=== PATIENT | male | born 1945 | race Caucasian/White ===

== ENCOUNTER 2020-12-15 08:01 | Day surgery (SDC) | payer MEDICARE, OTHER ==
--- NOTE | 2020-12-11 10:25 | PCM.SN.2 ---
- Free Text/Narrative Note: Left selective femoral nerve block at the adductor canal for post-procedure pain control under US guidance requested by Dr. Brown. Date: 12/15/2020 Time Out: 1151 Start: 1151 End: 1158 Chart reviewed. Consent signed. Questions answered. Appropriate monitors applied. Time out performed. Left mid-shaft femur identified with ultrasound, scanning medially of femur, the femoral artery in the adductor canal visualized, and the femoral nerve located laterally to the artery. The skin was prepped lateral to the ultrasound probe with chlorahexadine times two. The 21ga 4 insulated block needle was inserted under direct ultrasound guidance into the adductor canal. 25mL of 0.5% ropivacaine with 1:200,000 epinephrine was injected circumferentially around the nerve with intermittent negative aspiration noted. Patient tolerated the procedure well. Sterile technique noted along with sterile gloves, mask, and sterile probe cover. See picture on progress note and vital signs on nurses notes. Block completed in PACU. Micaela Jackson CRNA
[~2020-12-15 08:01] MED LIST: Acetaminophen 325 MG Tab PO SCH; EPINEPHrine 1 MG/ML SDV ONE; Lidocaine 1% 4 ML ONE; Lidocaine 1%/Sod Bicarbonate in NS 8.4% 1 ML Syringe IDERM PRN; Midazolam 1 MG/ML 2 ML SDV ONE; Morphine 8 MG, EPINEPHrine 0.3 MG, Cefuroxime 750 MG, Ketorolac 30 MG, Sodium Chloride ... PRN; Pregabalin 25 MG Cap PO SCH; Propofol 200 MG/20 ML SDV ONE; Ropivacaine 0.5% 5 MG/ML 30 ML SDV ONE; Sodium Chloride 0.9% 10 ML Syringe FLUSH PRN; ceFAZolin 1 GM Vial ONE; oxyCODONE ER 10 MG TAB.ER PO SCH
[2020-12-15] MEDS: Lactated Ringers 1,000 ML IV SCH ×2 (08:25→12:25)
--- NOTE | 2020-12-15 09:06 | PCM.PREANE ---
Preanesthetic Assessment - Procedure Proposed Procedure: Left total knee arthroplaasty - Anesthesia/Transfusion/Family Hx Anesthesia History: No Prior Anesthesia Family History of Anesthesia Reaction: No Transfusion History: No Prior Transfusion(s) Intubation History: Unknown - Review of Systems General: No Symptoms Pulmonary: No Symptoms Cardiovascular: No Symptoms Gastrointestinal: No Symptoms Neurological: No Symptoms Other: Reports: None - Physical Assessment NPO Status Date: 12/15/20 NPO Status Time: 22:30 Vital Signs: Last Vital Signs Temp 36.6 C 12/15/20 08:00 Pulse 65 12/15/20 08:00 Resp 16 12/15/20 08:00 BP 142/85 H 12/15/20 08:00 Pulse Ox 95 12/15/20 08:00 Height: 1.93 m Weight: 100.698 kg ASA Class: 2 Mental Status: Alert & Oriented x3 Thyro-Mental Finger Breadths: 3 Mouth Opening Finger Breadths: 4 ROM/Head Extension: Full Lungs: Clear to Auscultation, Normal Respiratory Effort Cardiovascular: Regular Rate, Regular Rhythm - Lab Values: Laboratory Last Values MRSA (PCR) Negative 12/05/20 14:30 - Allergies Allergies/Adverse Reactions: Allergies Allergy/AdvReac Type Severity Reaction Status Date / Time Penicillins Allergy Severe Rash Verified 12/12/20 11:55 hazelnut Allergy tongue Verified 12/12/20 11:55 tingling - Blood Blood Available: No - Anesthesia Plan Pre-Op Medication Ordered: None - Acknowledgements Anesthesia Type Planned: Spinal Pt an Appropriate Candidate for the Planned Anesthesia: Yes Alternatives and Risks of Anesthesia Discussed w Pt/Guardian: Yes Pt/Guardian Understands and Agrees with Anesthesia Plan: Yes PreAnesthesia Questionnaire HEENT History: Reports: Impaired Vision Cardiovascular History: Reports: High Cholesterol Respiratory History: Reports: None Gastrointestinal History: Reports: Colon Polyp, Gastritis, GERD, Other (See Below) Other Gastrointestinal History: esophagitis Genitourinary History: Reports: None [employer] History: Reports: None Musculoskeletal History: Reports: Osteoarthritis, Other (See Below) Other Musculoskeletal History: chronic knee pain Neurological History: Reports: None Psychiatric History: Reports: None Endocrine/Metabolic History: Reports: None Hematologic History: Reports: Other (See Below) Other Hematologic History: family history of a blood clotting disorder Immunologic History: Reports: None Oncologic (Cancer) History: Reports: None Dermatologic History: Reports: Psoriasis - Infectious Disease History Infectious Disease History: Reports: None - Past Surgical History Head Surgeries/Procedures: Reports: None HEENT Surgical History: Reports: Naso-Sinus Surgery, Tonsillectomy, Other (See Below) Other HEENT Surgeries/Procedures: sinus surgery, nasal polypectomy, septoplasty, turbinate reduction Cardiovascular Surgical History: Reports: None Respiratory Surgical History: Reports: None GI Surgical History: Reports: Colonoscopy, EGD Female Surgical History: Reports: None Male Surgical History: Reports: None Endocrine Surgical History: Reports: None Neurological Surgical History: Reports: None Other Musculoskeletal Surgeries/Procedures:: left knee surgery Oncologic Surgical History: Reports: None Dermatological Surgical History: Reports: None - SUBSTANCE USE Tobacco Use Status *Q: Never Tobacco User Recreational Drug Use History: No - HOME MEDS Home Medications: Home Meds Multivitamin [Multivitamins] 1 tab PO DAILY 06/15/14 [History] Acetaminophen [Tylenol Extra Strength] 1,000 mg PO QAM 12/12/20 [History] Ascorbic Acid/Collagen Hydr [Collagen Plus Vit C] 1 cap PO DAILY 12/12/20 [History] Calcium Carbonate [Calcium] 600 mg PO DAILY 12/12/20 [History] Cholecalciferol (Vitamin D3) [Vitamin D3] 5,000 unit PO DAILY 12/12/20 [History] Glucosam/Chond/Collagen/Hyalur [Glucosamine Chondroitin] 1 tab PO DAILY 12/12/20 [History] Montelukast Sodium [Singulair] 10 mg PO DAILY 12/12/20 [History] Omega3/Dha/Epa/Fish Oil/Vit D3 [Fish Oil-Vit D3 Softgel] 1 cap PO DAILY 12/12/20 [History] Pantoprazole Sodium [Protonix] 20 mg PO DAILY 12/12/20 [History] Pravastatin [Pravachol] 20 mg PO DAILY 12/12/20 [History] Saw [place] 500 mg PO DAILY 12/12/20 [History] Ubidecarenone [Coq-10] 200 mg PO DAILY 12/12/20 [History] Cyclobenzaprine [Flexeril] 10 mg PO BID PRN #20 tab 12/15/20 [Rx] Rivaroxaban [Xarelto] 10 mg PO DAILY #30 tab 12/15/20 [Rx] oxyCODONE 5 - 10 mg PO Q4H PRN #40 tab 12/15/20 [Rx] - CURRENT (IN HOUSE) MEDS Current Meds: Current Medications Acetaminophen (Acetaminophen 325 Mg Tab) 975 mg PO ONETIME TARA Stop: 12/15/20 13:00 Last Admin: 12/15/20 08:05 Dose: 975 mg Documented by: Morphine Sulfate 8 mg/Epinephrine HCl 0.3 mg/Cefuroxime Sodium 750 mg/Ketorolac Tromethamine 30 mg/Sodium Chloride 7.9 ml 0 mg .XX ASDIRECTED PRN PRN Reason: Pain Stop: 12/15/20 13:00 Lactated Ringer's (Ringers, Lactated) 1,000 mls @ 125 mls/hr IV ASDIRECTED TARA Stop: 12/15/20 23:00 Last Admin: 12/15/20 08:25 Dose: 125 mls/hr Documented by: Lidocaine/Sodium Bicarbonate (Lidocaine 1%/Sod Bicarbonate In Ns 8.4% 1 Ml Syringe) 0.25 ml IDERM ONETIME PRN PRN Reason: Prior to IV Start Stop: 12/15/20 18:00 Last Admin: 12/15/20 08:24 Dose: 0.25 ml Documented by: Oxycodone HCl (Oxycodone Er 10 Mg Tab.Er) 10 mg PO ONETIME TARA Stop: 12/15/20 13:00 Last Admin: 12/15/20 08:05 Dose: 10 mg Documented by: Pregabalin (Pregabalin 25 Mg Cap) 50 mg PO ONETIME TARA Stop: 12/15/20 13:00 Last Admin: 12/15/20 08:05 Dose: 50 mg Documented by: Sodium Chloride (Sodium Chloride 0.9% 10 Ml Syringe) 10 ml FLUSH ASDIRECTED PRN PRN Reason: Keep Vein Open Stop: 12/15/20 18:00 Discontinued Medications Bupivacaine HCl (Bupivacaine 0.25% 10 Ml Sdv) Confirm Administered Dose 10 ml .ROUTE .STK-MED ONE Stop: 12/15/20 08:45 Cefazolin Sodium (Cefazolin 1 Gm Vial) Confirm Administered Dose 2 gm .ROUTE .STK-MED ONE Stop: 12/15/20 07:36 Epinephrine HCl (Epinephrine 1 Mg/Ml Sdv) Confirm Administered Dose 1 mg .ROUTE .STK-MED ONE Stop: 12/15/20 07:12 Lidocaine HCl (Xylocaine-Mpf 1%) Confirm Administered Dose 4 mls @ as directed .ROUTE .STK-MED ONE Stop: 12/15/20 07:36 Midazolam HCl (Midazolam 1 Mg/Ml 2 Ml Sdv) Confirm Administered Dose 2 mg .ROUTE .STK-MED ONE Stop: 12/15/20 07:35 Propofol (Propofol 200 Mg/20 Ml Sdv) Confirm Administered Dose 200 mg .ROUTE .STK-MED ONE Stop: 12/15/20 07:35 Ropivacaine (Ropivacaine 0.5% 5 Mg/Ml 30 Ml Sdv) Confirm Administered Dose 30 ml .ROUTE .STK-MED ONE Stop: 12/15/20 07:12 Tranexamic Acid (Tranexamic Acid 1,000 Mg/10 Ml Amp) Confirm Administered Dose 1,000 mg .ROUTE .STK-MED ONE Stop: 12/15/20 08:07 Triamcinolone Acetonide (Triamcinolone Acetonide 40 Mg/Ml 1 Ml Sdv) Confirm Administered Dose 80 mg .ROUTE .STK-MED ONE Stop: 12/15/20 08:45 Vancomycin HCl (Vancomycin 1 Gm Sdv) Confirm Administered Dose 1 gm .ROUTE .STK- MED ONE Stop: 12/15/20 08:07
[2020-12-15] MEDS: Vancomycin 1 GM SDV ONE ×2 (09:22→11:14)
[2020-12-15] MEDS: Bupivacaine 0.25% 10 ML SDV ONE ×2 (09:24→11:30)
[2020-12-15] MEDS: Triamcinolone Acetonide 40 MG/ML 1 ML SDV ONE ×2 (09:25→11:30)
[2020-12-15] MEDS ORDERED: Propofol 200 MG/20 ML SDV ONE (10:21)
[2020-12-15] MEDS ORDERED: Lactated Ringers 1,000 ML ONE (10:43)
[2020-12-15] MEDS ORDERED: diphenhydrAMINE 50 MG/ML SDV IVPUSH PRN (11:53)
[2020-12-15] MEDS ORDERED: Ondansetron 4 MG/2 ML SDV IVPUSH PRN (11:53)
[2020-12-15] MEDS ORDERED: fentaNYL 100 MCG/2 ML SDV IVPUSH PRN (11:53)
--- NOTE | 2020-12-15 11:55 | PCM.POSTAN ---
POST ANESTHESIA ASSESSMENT - MENTAL STATUS Mental Status: Other (drowsy ) - VITAL SIGNS Vital Signs: Last Vital Signs Temp 36.1 C 12/15/20 11:45 Pulse 63 12/15/20 11:45 Resp 14 12/15/20 11:45 BP 100/55 L 12/15/20 11:45 Pulse Ox 97 12/15/20 11:45 - RESPIRATORY Respiratory Status: Respiratory Rate WNL, Airway Patent, O2 Saturation Stable, Supplemental Oxygen - CARDIOVASCULAR CV Status: Pulse Rate WNL, Blood Pressure Stable - GASTROINTESTINAL GI Status: No Symptoms - PAIN Pain Score: 0 - POST OP HYDRATION Hydration Status: Adequate & Stable
[2020-12-15] MEDS ORDERED: oxyCODONE 5 MG Tab PO PRN (12:06)
--- NOTE | 2020-12-15 12:08 | PCM48HPAN ---
Post Anesthesia Note - EVALUATION WITHIN 48HRS OF ANESTHETIC Vital Signs in Normal Range: Yes Patient Participated in Evaluation: Yes Respiratory Function Stable: Yes Airway Patent: Yes Cardiovascular Function Stable: Yes Hydration Status Stable: Yes Pain Control Satisfactory: Yes Nausea and Vomiting Control Satisfactory: Yes Mental Status Recovered: Yes Vital Signs: Last Vital Signs Temp 36.1 C 12/15/20 12:00 Pulse 63 12/15/20 12:00 Resp 12 12/15/20 12:00 BP 105/63 12/15/20 12:00 Pulse Ox 95 12/15/20 12:00
[2020-12-15] MEDS ORDERED: Cyclobenzaprine 10 MG Tab PO ONE (12:15)
--- NOTE | 2020-12-15 12:48 | CR ---
Left knee: AP and lateral views of the left knee were obtained. Comparison: Prior left knee CT study of 12/05/20 is available. Knee prosthesis is seen as well as patellar prosthesis. Components are aligned. Underlying bony structures are intact. No acute fracture or other osseous abnormality is seen. Soft tissue air is noted. Impression: 1. Satisfactory appearance of recently placed left knee prostheses. Diagnostic code #2
[2020-12-15 14:50] VITALS: BP 132/71; PULSE 53
--- NOTE | 2020-12-15 17:54 | PCM.OPNOTE ---
- General Post-Op/Procedure Note Date of Surgery/Procedure: 12/15/20 Operative Procedure(s): left total knee arthroplasty with j[employer] robot[employer] with right knee corticosteroid injection Pre Op Diagnosis: bilateral knee osteoartrhosis Post-Op Diagnosis: Same Anesthesia Technique: Local, MAC, Spinal Primary Surgeon: Carlos Brown Anesthesia Provider: Micaela Jackson Board Design Engineer: Lilian Ghotra Board Design Engineer: Rebeka De EBL in mLs: 200 Complications: None Condition: Good Free Text/Narrative:: Intake & Output 12/15/20 12/15/20 12/15/20 06:59 14:59 22:59 Intake Total 300 Balance 300 7/7 9mm 35x10
--- NOTE | 2020-12-21 19:07 | OR ---
DATE OF OPERATION: 12/15/2020 SURGEON: Carlos Brown MD OPERATION PERFORMED: Left total knee arthroplasty with [employer] robot[employer] with right knee corticosteroid injection. PREOPERATIVE DIAGNOSIS: Bilateral knee osteoarthrosis. POSTOPERATIVE DIAGNOSIS: Bilateral knee osteoarthrosis. ANESTHESIA: Local MAC with spinal. ANESTHESIA PROVIDER: Micaela Jackson CRNA. ASSISTANTS: Lilian Ghotra PA-C and Rebeka De LPN. ESTIMATED BLOOD LOSS: 200 mL. COMPLICATIONS: None. CONDITION: Stable. IMPLANTS: 1. [place] size 7 press-fit CR femur. 2. Radha size 7 press-fit tibial baseplate. 3. Radha size 7, 9 mm CS polyethylene insert. 4. Radha size 35 x 10 mm press-fit asymmetric patella. DESCRIPTION OF PROCEDURE: The patient was identified in the preop holding area. Proper site was marked, identified by the surgeon. The patient was taken back to the operative theater, where after adequate anesthesia, the patient had a nonsterile tourniquet applied to the left lower extremity. He was then sterilely prepped and draped in the usual sterile fashion. OR time-out was performed. The patient received 2 g IV Ancef. The left lower extremity then had the loop choi applied. It was then exsanguinated and tourniquet was insufflated to 250 mmHg. Standard anterior incision was made and medial parapatellar arthrotomy was created. Deep fibers of the MCL were raised and the anterior fat pad was resected. At this time, attention was turned to the patella. Patella measured a 26 and resected to a 15 for a 35 x 10 mm patella. Drill holes were then drilled and found to be adequate, and the patient had good bone quality. Two 4.0 guide pins were then placed intra-incisionally in the femur and then 2 were placed 3 fingerbreadths below the tibial tubercle and tibia for the [place] Gabriel robotic arrays. Checkpoints were then placed in both the femur and the tibia as well. At this time, 40 points were obtained off both the femur and the tibia for the Radha Gabriel robotic plan. The patient's knee was brought into full extension. Varus and valgus stresses were applied as well as at 90 degrees of flexion. Radha Gabriel robotic plan was made for 19 mm gaps in both flexion and extension after adjusting for the patient's anatomy and tensioning of the ligaments. [employer] robotic arm was brought in with the straight saw blade. The tibial cut was then completed as well as the anterior femoral cut, the anterior chamfer cut, and posterior femoral cut. All bony pieces were removed. Saw blade was then switched and the distal femoral cut and posterior chamfer cut was completed. All cuts were found to be adequate. Medial and lateral menisci were then resected. Posterior osteophytes were removed. Trial implants from size 7 tibia and size 7 femur were then placed. A 9 mm trial was placed. The patient had full extension and flexion on the [employer] robotic plan with no varus-valgus instability. At this time, the tibia was stamped and drilled in proper rotation. All trial implants were removed. The guide pins were removed from both the femur and the tibia as well as the checkpoints. Size 7 press-fit tibia was then impacted into place. Size 7 press-fit femur was impacted into place. 9 mm CS polyethylene insert was impacted into place. The patient's knee was brought to full extension, and a 35 x 10 mm patella was press-fit into place. Tourniquet was deflated. Bleeders were cauterized. 1 L pulse lavage irrigation with Ancef was irrigated through the knee along with 400 mL IrriSept irrigation. Periarticular injection was completed. Topical tranexamic acid and vancomycin powder were applied intra-incisionally. A #2 barbed suture was used for closure of the medial parapatellar arthrotomy. 2-0 Vicryl and Stratafix were used for subcutaneous closure, and Prineo was used for skin closure. The patient had sterile soft dressing applied. After this was completed under sterile technique, 2 mL of 40 mg Kenalog and 4 mL of 0.25% Marcaine were injected to the patient's right knee. The patient tolerated all the procedures well and was sent to PACU in stable condition. FORD /[id number]
== END 2020-12-15 15:50 | disposition home or self-care (01) ==
LOC: JD.SDS 08:01
PROVIDERS: ATTEND Orthopaedic Surgery
DX: M17.0 Bilateral primary osteoarthritis of knee (principal); M25.762 Osteophyte, left knee; G89.29 Other chronic pain; E78.00 Pure hypercholesterolemia, unspecified; K21.9 Gastro-esophageal reflux disease without esophagitis; E78.5 Hyperlipidemia, unspecified; Z79.899 Other long term (current) drug therapy; Z88.0 Allergy status to penicillin; Z91.018 Allergy to other foods; Z87.891 Personal history of nicotine dependence; Z86.010 Personal history of colon polyps; Z98.890 Other specified postprocedural states
CPT/HCPCS: 20610; 27447; 73560; 87641; 97110; 97116; 97161; 97165; A9270; C1713; C1776; J0171; J0690; J0697; J1885; J2250; J2270; J2704; J2795; J3301; J3370; J3490; J7120; 01402; 64450; 76942; 99100

== ENCOUNTER 2021-12-21 08:43 | Day surgery (SDC) | payer MEDICARE, OTHER ==
[~2021-12-21 08:43] MED LIST changes: -Acetaminophen 325 MG Tab PO SCH; -EPINEPHrine 1 MG/ML SDV ONE; +Lactated Ringers 1,000 ML IV SCH; -Lidocaine 1% 4 ML ONE; -Midazolam 1 MG/ML 2 ML SDV ONE; -Morphine 8 MG, EPINEPHrine 0.3 MG, Cefuroxime 750 MG, Ketorolac 30 MG, Sodium Chloride ... PRN; -Pregabalin 25 MG Cap PO SCH; -Propofol 200 MG/20 ML SDV ONE; -Ropivacaine 0.5% 5 MG/ML 30 ML SDV ONE; +Sodium Chloride 0.9% 10 ML Syringe FLUSH SCH; -ceFAZolin 1 GM Vial ONE; -oxyCODONE ER 10 MG TAB.ER PO SCH
[2021-12-21] MEDS ORDERED: Acetaminophen 325 MG Tab PO ONE (09:00)
[2021-12-21] MEDS ORDERED: oxyCODONE ER 10 MG TAB.ER PO ONE (09:00)
[2021-12-21] MEDS ORDERED: Pregabalin 25 MG Cap PO ONE (09:00)
[2021-12-21] MEDS ORDERED: Propofol 200 MG/20 ML SDV ONE ×3 (10:54→12:04)
[2021-12-21] MEDS ORDERED: fentaNYL 100 MCG/2 ML SDV ONE (10:54)
[2021-12-21] MEDS ORDERED: Midazolam 1 MG/ML 2 ML SDV ONE (10:54)
[2021-12-21] MEDS ORDERED: Lidocaine 1% 4 ML ONE (10:55)
[2021-12-21] MEDS ORDERED: Dexamethasone 4 MG/ML 5 ML MDV ONE (10:58)
[2021-12-21] MEDS ORDERED: ceFAZolin 1 GM Vial ONE (11:10)
[2021-12-21] MEDS ORDERED: Lactated Ringers 500 ML ONE (11:30)
[2021-12-21] MEDS ORDERED: diphenhydrAMINE 50 MG/ML SDV IVPUSH PRN (11:58)
[2021-12-21] MEDS ORDERED: Ondansetron 4 MG/2 ML SDV IVPUSH PRN (11:58)
[2021-12-21] MEDS ORDERED: fentaNYL 100 MCG/2 ML SDV IVPUSH PRN (11:58)
[2021-12-21] MEDS: Morphine 8 MG, EPINEPHrine 0.3 MG, Cefuroxime 750 MG, Ketorolac 30 MG, Sodium Chloride ... PRN ×10 (12:08→12:22)
[2021-12-21] MEDS: Vancomycin 1 GM SDV ONE ×2 (12:09→12:29)
[2021-12-21] MEDS ORDERED: Ondansetron 4 MG/2 ML SDV ONE (12:11)
[2021-12-21] MEDS ORDERED: Ketorolac 30 MG/ML SDV ONE (12:11)
[2021-12-21] MEDS ORDERED: EPINEPHrine 1 MG/ML SDV ONE (12:55)
[2021-12-21] MEDS ORDERED: Ropivacaine 0.5% 5 MG/ML 30 ML SDV ONE (12:55)
[2021-12-21] MEDS ORDERED: oxyCODONE 5 MG Tab PO ONE (13:00)
[2021-12-21 17:07] VITALS: BP 130/72; PULSE 72
== END 2021-12-21 16:15 | disposition home or self-care (01) ==
LOC: JD.SDS 08:43
PROVIDERS: ATTEND Orthopaedic Surgery
DX: M17.11 Unilateral primary osteoarthritis, right knee (principal); E78.00 Pure hypercholesterolemia, unspecified; K21.9 Gastro-esophageal reflux disease without esophagitis; Z79.899 Other long term (current) drug therapy; Z88.0 Allergy status to penicillin; Z88.8 Allergy status to other drugs, medicaments and biological substances; Z98.890 Other specified postprocedural states; Z87.891 Personal history of nicotine dependence
CPT/HCPCS: 0055T; 27447; 73560; 97110; 97116; 97161; A9270; C1713; C1776; J0171; J0690; J0697; J1100; J1885; J2250; J2270; J2405; J2704; J2795; J3010; J3370; J7120; 01402; 64447; 76942; 99100

== ENCOUNTER 2021-12-23 00:20 | Emergency (ER) | payer MEDICARE, OTHER ==
[2021-12-23 00:37] VITALS: BP 134/120; PULSE 80
[2021-12-23] MEDS ORDERED: Sodium Chloride 0.9% 1,000 ML IV ONE (00:54)
== END 2021-12-23 02:05 | disposition home or self-care (01) ==
LOC: JD.ED 00:20
DX: R42 Dizziness and giddiness (principal); N17.9 Acute kidney failure, unspecified; E78.00 Pure hypercholesterolemia, unspecified; K21.9 Gastro-esophageal reflux disease without esophagitis; Z88.0 Allergy status to penicillin; Z91.018 Allergy to other foods; Z79.01 Long term (current) use of anticoagulants; Z79.899 Other long term (current) drug therapy
CPT/HCPCS: 36415; 80048; 82947; 84484; 85014; 85018; 93005; 99285; J7030

== ENCOUNTER 2021-12-23 09:32 | Inpatient (IN) | payer MEDICARE, OTHER ==
[2021-12-23] MEDS ORDERED: HYDROmorphone 1 MG/ML Syringe IVPUSH ONE (11:01)
[2021-12-23] MEDS ORDERED: Sodium Chloride 0.9% 10 ML Syringe FLUSH PRN (11:01)
[2021-12-23] MEDS ORDERED: Sodium Chloride 0.9% 500 ML IV ONE (11:08)
[2021-12-23] MEDS ORDERED: Polyethylene Glycol 3350 Powder 17 GM Packet PO PRN (11:55)
[2021-12-23] MEDS ORDERED: Cyclobenzaprine 10 MG Tab PO PRN (12:06)
[2021-12-23] MEDS ORDERED: Ondansetron 4 MG Tab.DIS PO PRN (12:08)
[2021-12-23] MEDS: Rivaroxaban 10 MG Tab PO SCH (12:50)
[2021-12-23] MEDS: oxyCODONE 5 MG Tab PO PRN ×2 (13:16→17:54)
[2021-12-23] MEDS: Acetaminophen 325 MG Tab PO SCH ×2 (16:39→20:29)
[2021-12-23] MEDS ORDERED: fentaNYL 100 MCG/2 ML SDV IVPUSH PRN (17:21)
[2021-12-23] MEDS: Sodium Chloride 0.9% 1,000 ML IV SCH (17:56)
[2021-12-23] MEDS ORDERED: diphenhydrAMINE/Zinc Acetate 2% Crm 28.4 GM Tube TOP PRN (20:12)
[2021-12-23] MEDS: diphenhydrAMINE 25 MG Cap PO PRN (20:29)
[2021-12-23] MEDS: Docusate Sodium 100 MG Cap PO SCH (20:29)
[2021-12-24] MEDS: oxyCODONE 5 MG Tab PO PRN ×5 (00:15→16:46)
[2021-12-24] MEDS: Sodium Chloride 0.9% 1,000 ML IV SCH (03:13)
[2021-12-24] MEDS: Acetaminophen 325 MG Tab PO SCH ×3 (08:22→20:22)
[2021-12-24] MEDS: Pravastatin 20 MG Tab PO SCH (08:23)
[2021-12-24] MEDS: Cholecalciferol (Vitamin D3) 5,000 UNIT Tab PO SCH (08:23)
[2021-12-24] MEDS: Rivaroxaban 10 MG Tab PO SCH (08:24)
[2021-12-24] MEDS: Docusate Sodium 100 MG Cap PO SCH ×2 (08:24→20:22)
[2021-12-24] MEDS: Pantoprazole 40 MG Tab.CR PO SCH (08:24)
[2021-12-24] MEDS: diphenhydrAMINE 25 MG Cap PO PRN ×2 (11:53→20:22)
[2021-12-24] MEDS: Polyethylene Glycol 3350 Powder 17 GM Packet PO SCH (11:53)
[2021-12-25] MEDS: oxyCODONE 5 MG Tab PO PRN ×3 (00:11→13:01)
[2021-12-25] MEDS: Polyethylene Glycol 3350 Powder 17 GM Packet PO SCH (08:53)
[2021-12-25] MEDS: Rivaroxaban 10 MG Tab PO SCH (08:55)
[2021-12-25] MEDS: Pravastatin 20 MG Tab PO SCH (08:55)
[2021-12-25] MEDS: Acetaminophen 325 MG Tab PO SCH (08:56)
[2021-12-25] MEDS: Cholecalciferol (Vitamin D3) 5,000 UNIT Tab PO SCH (08:56)
[2021-12-25] MEDS: Pantoprazole 40 MG Tab.CR PO SCH (08:56)
[2021-12-25] MEDS: Docusate Sodium 100 MG Cap PO SCH (08:57)
[2021-12-25] MEDS: diphenhydrAMINE 25 MG Cap PO PRN (08:59)
[2021-12-25 11:56] VITALS: BP 134/54; PULSE 83
== END 2021-12-25 13:33 | disposition home or self-care (01) | DRG 684 ==
LOC: JD.ED 09:32 → JD.MS 11:51
PROVIDERS: ADMIT Internal Medicine; ATTEND Internal Medicine
DX: N17.9 Acute kidney failure, unspecified (principal); G89.18 Other acute postprocedural pain; D50.8 Other iron deficiency anemias; E78.5 Hyperlipidemia, unspecified; Z96.651 Presence of right artificial knee joint; R42 Dizziness and giddiness; I95.1 Orthostatic hypotension; H91.90 Unspecified hearing loss, unspecified ear; I44.0 Atrioventricular block, first degree; L27.0 Generalized skin eruption due to drugs and medicaments taken internally; M25.561 Pain in right knee; H54.7 Unspecified visual loss; J45.909 Unspecified asthma, uncomplicated; Z86.718 Personal history of other venous thrombosis and embolism; Z86.010 Personal history of colon polyps; E78.00 Pure hypercholesterolemia, unspecified; K21.9 Gastro-esophageal reflux disease without esophagitis; N40.1 Benign prostatic hyperplasia with lower urinary tract symptoms; R33.9 Retention of urine, unspecified; M19.90 Unspecified osteoarthritis, unspecified site; Z88.0 Allergy status to penicillin; Z91.018 Allergy to other foods; Z79.01 Long term (current) use of anticoagulants; Z79.899 Other long term (current) drug therapy; Z20.822 Contact with and (suspected) exposure to COVID-19
CPT/HCPCS: 73564; 93971; 96374; 99285; J1170; J3490; J7030; U0002; 36415; 80048; 82728; 83540; 85027; 99284; A9270-GY; J3010

== ENCOUNTER 2023-12-31 20:20 | Inpatient (IN) | payer MEDICARE, OTHER ==
[2023-12-31] MEDS: Metoclopramide 10 MG/2 ML SDV IVPUSH ONE (20:40)
[2023-12-31] MEDS: Sodium Chloride 0.9% 10 ML Syringe FLUSH PRN ×2 (20:46→21:53)
[2023-12-31] MEDS: Sodium Chloride 0.9% 1,000 ML IV SCH (20:46)
[2023-12-31 20:49] LABS: BASOPHILS PERCENT AUTO 0.3 % (0.0-1.0); EOSINOPHILS ABSOLUTE AUTO 0.1 K/mm3 (0.0-0.4); EOSINOPHILS PERCENT AUTO 1.4 % (0.0-6.0); HEMATOCRIT 42.6 % (42.0-52.0); HEMOGLOBIN 14.5 gm/dl (14.0-18.0); IMMATURE GRAN ABSOLUTE AUTO 0.03 K/mm3 (0.00-0.05); IMMATURE GRAN PERCENT AUTO 0.4 % (0.0-0.4); LYMPHOCYTES ABSOLUTE AUTO 1.3 K/mm3 (1.0-4.8); LYMPHOCYTES PERCENT AUTO 15.8 % (24.0-44.0); MEAN CORPUSCULAR HEMOGLOBIN 31.1 pg (28.0-32.0); MEAN CORPUSCULAR VOLUME 91.4 fl (83.0-99.0); MEAN PLATELET VOLUME 8.4 fl (9.4-12.4); MONOCYTES ABSOLUTE AUTO 0.6 K/mm3 (0.0-0.8); NEUTROPHILS PERCENT AUTO 75.1 % (41.0-71.0); PLATELET COUNT,PLT 225 K/mm3 (150-400); RED BLOOD CELL COUNT 4.66 M/mm3 (4.52-5.90); WHITE BLOOD CELL COUNT,WBC 7.96 K/mm3 (3.9-11.3)
[2023-12-31 21:26] LABS: A/G RATIO 1.4 (1-2); ALANINE AMINOTRANSFERASE,ALT 29 U/L (16-63); ALBUMIN 3.8 g/dl (3.4-5.0); ALKALINE PHOSPHATASE 83 U/L (46-116); ANION GAP 16.8 (5-15); ASPARTATE AMNIOTRANSFERASE,AST 16 U/L (15-37); BILIRUBIN TOTAL 0.9 mg/dL (0.2-1.0); BLOOD UREA NITROGEN,BUN 23 mg/dL (7-18); BUN/CREATININE RATIO 19.2 (14-18); C-REACTIVE PROTEIN 1.06 mg/dL (<0.30); CARBON DIOXIDE,CO2 20 mEq/L (21-32); CHLORIDE,CL 103 mEq/L (98-107); CREATININE 1.2 mg/dL (0.7-1.3); EST CRCL DRUG DOSING (CG) 59.19 mL/min; ESTIMATED GFR 63 mL/min (>60); GLUCOSE RANDOM 119 mg/dL (70-99); POTASSIUM,K 3.8 mEq/L (3.5-5.1); PROTEIN TOTAL,TP 6.6 g/dl (6.4-8.2); SODIUM,NA 136 mEq/L (136-145); TROPONIN I HIGH SENSITIVITY < 4 pg/mL (<=76)
[2023-12-31] MEDS: Iopamidol 612 MG/ML 100 ML Bottle IVPUSH ONE (21:47)
[2023-12-31] MEDS ORDERED: Acetaminophen 325 MG Tab PO PRN (23:31)
[2023-12-31] MEDS ORDERED: Albuterol/Ipratropium 3.0-0.5 MG/3 ML Neb Soln NEB PRN (23:31)
[2023-12-31] MEDS ORDERED: Promethazine 6.25 MG in Sodium Chloride 0.9% 50 ML IV PRN (23:31)
[2023-12-31] MEDS ORDERED: Montelukast 10 MG Tab PO PRN (23:35)
[2024-01-01] MEDS: Enoxaparin 40 MG/0.4 ML Syringe SUBCUT SCH ×2 (00:17→08:14)
[2024-01-01] MEDS: Sodium Chloride 0.9% 1,000 ML IV SCH (00:28)
[2024-01-01 05:36] LABS: BASOPHILS PERCENT AUTO 0.3 % (0.0-1.0); EOSINOPHILS ABSOLUTE AUTO 0.1 K/mm3 (0.0-0.4); EOSINOPHILS PERCENT AUTO 1.9 % (0.0-6.0); HEMATOCRIT 39.6 % (42.0-52.0); HEMOGLOBIN 13.2 gm/dl (14.0-18.0); IMMATURE GRAN ABSOLUTE AUTO 0.02 K/mm3 (0.00-0.05); IMMATURE GRAN PERCENT AUTO 0.3 % (0.0-0.4); LYMPHOCYTES ABSOLUTE AUTO 1.3 K/mm3 (1.0-4.8); LYMPHOCYTES PERCENT AUTO 19.6 % (24.0-44.0); MEAN CORPUSCULAR HEMOGLOBIN 30.8 pg (28.0-32.0); MEAN CORPUSCULAR HGB CONC 33.3 g/dl (32.0-36.0); MEAN CORPUSCULAR VOLUME 92.5 fl (83.0-99.0); MEAN PLATELET VOLUME 8.8 fl (9.4-12.4); MONOCYTES ABSOLUTE AUTO 0.6 K/mm3 (0.0-0.8); MONOCYTES PERCENT AUTO 9.3 % (0.0-8.0); NEUTROPHILS ABSOLUTE AUTO 4.6 K/mm3 (1.8-7.7); NEUTROPHILS PERCENT AUTO 68.6 % (41.0-71.0); PLATELET COUNT,PLT 212 K/mm3 (150-400); RED BLOOD CELL COUNT 4.28 M/mm3 (4.52-5.90); WHITE BLOOD CELL COUNT,WBC 6.77 K/mm3 (3.9-11.3)
[2024-01-01 06:03] LABS: ANION GAP 13.9 (5-15); CALCIUM 8.5 mg/dL (8.5-10.1); EST CRCL DRUG DOSING (CG) 71.02 mL/min; POTASSIUM,K 3.9 mEq/L (3.5-5.1)
[2024-01-01] MEDS: Pravastatin 20 MG Tab PO SCH (08:14)
[2024-01-01] MEDS: Sennosides/Docusate Sodium 50-8.6 MG Tab PO SCH (08:14)
[2024-01-01] MEDS: Bisacodyl 5 MG Tab PO SCH (08:14)
[2024-01-01] MEDS: Cholecalciferol (Vitamin D3) 5,000 UNIT Cap PO SCH (08:14)
[2024-01-01] MEDS ORDERED: Rivaroxaban 10 MG Tab PO SCH (09:00)
[2024-01-01 13:41] LABS: BORDETELLA PARAPERT IS1001 Not Detected (Not Detected)
[2024-01-01] MEDS: Calcium Carbonate 600 MG Tab PO ONE (17:07)
[2024-01-01] MEDS: Polyethylene Glycol 3350 Powder 17 GM Packet PO PRN (23:53)
[2024-01-02 05:36] LABS: BASOPHILS PERCENT AUTO 0.3 % (0.0-1.0); EOSINOPHILS ABSOLUTE AUTO 0.2 K/mm3 (0.0-0.4); EOSINOPHILS PERCENT AUTO 3.6 % (0.0-6.0); HEMATOCRIT 39.6 % (42.0-52.0); HEMOGLOBIN 13.5 gm/dl (14.0-18.0); IMMATURE GRAN ABSOLUTE AUTO 0.03 K/mm3 (0.00-0.05); IMMATURE GRAN PERCENT AUTO 0.5 % (0.0-0.4); LYMPHOCYTES ABSOLUTE AUTO 1.4 K/mm3 (1.0-4.8); LYMPHOCYTES PERCENT AUTO 23.5 % (24.0-44.0); MEAN CORPUSCULAR HEMOGLOBIN 31.2 pg (28.0-32.0); MEAN CORPUSCULAR HGB CONC 34.1 g/dl (32.0-36.0); MEAN CORPUSCULAR VOLUME 91.5 fl (83.0-99.0); MEAN PLATELET VOLUME 8.8 fl (9.4-12.4); MONOCYTES ABSOLUTE AUTO 0.7 K/mm3 (0.0-0.8); MONOCYTES PERCENT AUTO 11.3 % (0.0-8.0); NEUTROPHILS ABSOLUTE AUTO 3.7 K/mm3 (1.8-7.7); NEUTROPHILS PERCENT AUTO 60.8 % (41.0-71.0); PLATELET COUNT,PLT 220 K/mm3 (150-400); RED BLOOD CELL COUNT 4.33 M/mm3 (4.52-5.90); WHITE BLOOD CELL COUNT,WBC 6.09 K/mm3 (3.9-11.3)
[2024-01-02 05:52] LABS: ANION GAP 12.2 (5-15); CALCIUM 8.7 mg/dL (8.5-10.1); EST CRCL DRUG DOSING (CG) 71.02 mL/min; POTASSIUM,K 4.2 mEq/L (3.5-5.1)
[2024-01-02] MEDS: Pantoprazole 40 MG Tab.CR PO SCH (06:50)
[2024-01-02] MEDS: Sennosides/Docusate Sodium 50-8.6 MG Tab PO ONE (09:25)
[2024-01-02] MEDS: Ondansetron 4 MG/2 ML SDV IVPUSH PRN (10:53)
[2024-01-02 12:20] LABS: MAGNESIUM 1.9 mg/dL (1.8-2.4); PHOSPHORUS 3.4 mg/dL (2.6-4.7)
[2024-01-02] MEDS: Sennosides/Docusate Sodium 50-8.6 MG Tab PO SCH (21:10)
[2024-01-03 05:04] LABS: BASOPHILS PERCENT AUTO 0.5 % (0.0-1.0); EOSINOPHILS ABSOLUTE AUTO 0.2 K/mm3 (0.0-0.4); EOSINOPHILS PERCENT AUTO 2.7 % (0.0-6.0); IMMATURE GRAN ABSOLUTE AUTO 0.03 K/mm3 (0.00-0.05); IMMATURE GRAN PERCENT AUTO 0.5 % (0.0-0.4); LYMPHOCYTES ABSOLUTE AUTO 1.5 K/mm3 (1.0-4.8); LYMPHOCYTES PERCENT AUTO 23.5 % (24.0-44.0); MEAN CORPUSCULAR HEMOGLOBIN 30.5 pg (28.0-32.0); MEAN CORPUSCULAR HGB CONC 33.3 g/dl (32.0-36.0); MEAN CORPUSCULAR VOLUME 91.5 fl (83.0-99.0); MONOCYTES ABSOLUTE AUTO 0.9 K/mm3 (0.0-0.8); MONOCYTES PERCENT AUTO 13.5 % (0.0-8.0); NEUTROPHILS ABSOLUTE AUTO 3.8 K/mm3 (1.8-7.7); NEUTROPHILS PERCENT AUTO 59.3 % (41.0-71.0); PLATELET COUNT,PLT 207 K/mm3 (150-400); RED BLOOD CELL COUNT 4.26 M/mm3 (4.52-5.90); WHITE BLOOD CELL COUNT,WBC 6.37 K/mm3 (3.9-11.3)
[2024-01-03 05:19] LABS: ANION GAP 13.1 (5-15); BUN/CREATININE RATIO 13.6 (14-18); CALCIUM 8.6 mg/dL (8.5-10.1); CREATININE 1.1 mg/dL (0.7-1.3); EST CRCL DRUG DOSING (CG) 64.57 mL/min; POTASSIUM,K 4.1 mEq/L (3.5-5.1)
[2024-01-03 14:32] VITALS: BP 140/88; PULSE 70
== END 2024-01-03 14:02 | disposition home or self-care (01) | DRG 641 ==
LOC: JD.ED 20:20 → JD.MS 23:02 → OBSVTOIN 01-02 10:16
PROVIDERS: ADMIT Student in an Organized Health Care Education/Training Program; ATTEND Student in an Organized Health Care Education/Training Program
DX: E86.0 Dehydration (principal); E87.20 Acidosis, unspecified; R11.0 Nausea; R42 Dizziness and giddiness; Z66 Do not resuscitate; Z79.02 Long term (current) use of antithrombotics/antiplatelets; E78.00 Pure hypercholesterolemia, unspecified; J45.909 Unspecified asthma, uncomplicated; K21.9 Gastro-esophageal reflux disease without esophagitis; N40.0 Benign prostatic hyperplasia without lower urinary tract symptoms; M19.90 Unspecified osteoarthritis, unspecified site; G89.29 Other chronic pain; E66.9 Obesity, unspecified; K59.00 Constipation, unspecified; I35.8 Other nonrheumatic aortic valve disorders; I35.1 Nonrheumatic aortic (valve) insufficiency; G31.9 Degenerative disease of nervous system, unspecified; I51.7 Cardiomegaly; I77.819 Aortic ectasia, unspecified site; Z96.651 Presence of right artificial knee joint; Z88.0 Allergy status to penicillin; Z91.018 Allergy to other foods; Z79.899 Other long term (current) drug therapy; Z68.30 Body mass index [BMI] 30.0-30.9, adult
CPT/HCPCS: 36415; 70450; 70450-26; 70551; 70551-26; 71045; 71045-26; 74177; 74177-26; 80048; 80053; 83735; 83880; 84100; 84443; 84484; 85025; 86140; 87486; 87581; 87633; 93005; 93307; 96361; 96372; 96374; 99222; 99232; 99239; 99285-25; A9270-GY; G0378; J1650; J2405; J2765; J3490; J7030; Q9967

== ENCOUNTER 2025-03-20 21:49 | Emergency (ER) | payer MEDICARE, OTHER ==
[2025-03-20 22:55] VITALS: BP 145/77; PULSE 69
== END 2025-03-20 22:46 | disposition home or self-care (01) ==
LOC: JD.ED 21:49
DX: T36.8X1A Poisoning by other systemic antibiotics, accidental (unintentional), initial encounter (principal); K21.9 Gastro-esophageal reflux disease without esophagitis; Z88.0 Allergy status to penicillin; Z88.8 Allergy status to other drugs, medicaments and biological substances; Z79.899 Other long term (current) drug therapy
CPT/HCPCS: 93005; 99284